=== PATIENT | male | born 1990 | race Caucasian/White ===

== ENCOUNTER 2018-03-26 18:09 | Emergency (ER) | payer OTHER | END 2018-03-26 18:56 | disposition home or self-care (01) | LOC: E/R 18:09 | DX: B35.3 Tinea pedis (principal); J45.909 Unspecified asthma, uncomplicated; Z87.891 Personal history of nicotine dependence | CPT/HCPCS: 99284; Z7502 ==

== ENCOUNTER 2018-04-01 09:27 | Emergency (ER) | payer OTHER ==
[2018-04-01] MEDS: KETOROLAC 30 MG INJ IV (09:58)
== END 2018-04-01 10:47 | disposition home or self-care (01) ==
LOC: FTE 09:27
DX: R21 Rash and other nonspecific skin eruption (principal); J45.909 Unspecified asthma, uncomplicated; Z87.891 Personal history of nicotine dependence
CPT/HCPCS: 99284; Z7502

== ENCOUNTER 2018-04-06 21:57 | Emergency (ER) | payer OTHER ==
[2018-04-07] MEDS: IBUPROFEN 600 MG TAB PO (00:48)
== END 2018-04-07 02:45 | disposition home or self-care (01) ==
LOC: FTE 21:57
DX: S93.402A Sprain of unspecified ligament of left ankle, initial encounter (principal); J45.909 Unspecified asthma, uncomplicated; F17.210 Nicotine dependence, cigarettes, uncomplicated; W18.39XA Other fall on same level, initial encounter; Y92.9 Unspecified place or not applicable
CPT/HCPCS: 73610; 99283-25

== ENCOUNTER 2018-11-18 09:08 | Emergency (ER) | payer OTHER ==
[2018-11-18] MEDS: KETOROLAC 60 MG INJ IM (09:59)
== END 2018-11-18 11:28 | disposition home or self-care (01) ==
LOC: FTE 09:08
DX: S20.211A Contusion of right front wall of thorax, initial encounter (principal); J45.909 Unspecified asthma, uncomplicated; W01.198A Fall on same level from slipping, tripping and stumbling with subsequent striking against other object, initial encounter; Y92.9 Unspecified place or not applicable; Z87.891 Personal history of nicotine dependence
CPT/HCPCS: 71045; 71100; 96372; 99284-25